=== PATIENT | female | born 1950 | race African-American/Black ===

== ENCOUNTER 2016-08-26 23:57 | Emergency (ER) | payer MEDICARE, MEDICAID ==
[2016-08-27] MEDS ORDERED: cefTRIAXone\\ROCEPHIN 1 GM VIAL ONE (00:32)
[2016-08-27] MEDS ORDERED: Lidocaine 1% (PF) 30 ML VIAL ONE (00:34)
[2016-08-27] MEDS ORDERED: Lidocaine 1% 20 ML MDV ONE (00:36)
--- NOTE | 2016-08-27 00:49 | ERRECORD ---
[facility] EMERGENCY RECORD HPI COUGH (00:26 ) CHIEF COMPLAINT: Patient presents for evaluation of cough, non-productive, Patient presents for evaluation of c/o pain in face, congestion. HISTORIAN: History provided by patient. ASSOCIATED WITH: Associated symptoms reviewed. EXACERBATED BY: Patient's condition exacerbated by nothing. RELIEVED BY: Patient's condition relieved by nothing. ROS (00:26 SHAN) CONSTITUTIONAL: Historian reports malaise, reports weakness. EYES: Negative eye review of systems. ENT: Historian reports rhinorrhea, pain over face. CARDIOVASCULAR: Negative cardiovascular review of systems. RESPIRATORY: Historian reports cough. MUSCULOSKELETAL: Negative musculoskeletal review of systems. SKIN: Negative skin review of systems. NEUROLOGIC: Negative neurologic review of systems. PAST MEDICAL HISTORY (00:20 EROG) MEDICAL HISTORY: Past medical history includes history of hypertension, which has been treated, Past medical history includes history of hypertension, which has been treated,. VERIFIED 08/27/16. FEMALE SURGICAL HISTORY: VERIFIED 12-21-14, Surgical history of colostomy IN 1984,. VERIFIED 08/27/16. SOCIAL HISTORY: Patient denies alcohol use, Patient denies drug use, Patient has no smoking history, Lives at home, with family, Social History includes VERIFIED 12-21-14, Patient has no smoking history, Patient denies alcohol use, Patient denies drug use. 05/23/14 Verified - quit smoking 15 years ago. VERIFIED 08/27/16. FAMILY HISTORY: Family history is non-contributory to this case. KNOWN ALLERGIES No Known Drug Allergies CURRENT MEDICATIONS (00:16 EROG) lisinopril-hydrochlorothiazide: TABLET : Strength - 20 mg-12.5 mg : ORAL Patient Dose: 1 tab(s) Oral once a day. VITAL SIGNS (00:12 EROG) VITAL SIGNS: BP: 167/97, Pulse: 95, Resp: 20, Temp: 98.2 (Tympanic), Pain: 10 (Constant), O2 sat: 97 on Room Air, Time: 08/27/2016 00:12. &a-1R&a+25V*p+0X*i1492X*c202B*c15G*c2P*p-0X&a-25V&a+1R Name: Talia Ghotra : 1950 F65 MedRec: [id number] AcctNum: [id number] Prepared: TueAug 27, 2016 01:14 by Interface Page 1 of 3 pMD [facility] EMERGENCY RECORD PHYSICAL EXAM (00:26 SHAN) CONSTITUTIONAL: Vital Signs Reviewed, Respiratory rate normal, Normal pulse oximetry, Patient appears non toxic, Patient alert and oriented to person, place and time, Nursing notes reviewed. HEAD: Head exam normal, Head exam included findings of head atraumatic, normocephalic. EYES: Eye exam included findings of eyelids normal to inspection, Pupils equally round and reactive to light, Extraocular muscles intact, Conjunctiva normal, Sclera normal. ENT: Uvula exam normal, Tonsil exam normal, mild pharyngeal edema. both maxillary sinuses tender. NECK: Neck exam normal. RESPIRATORY CHEST: Rhonchi present, diffusely, mild ronchi. CARDIOVASCULAR: Cardiovascular assessment normal, Cardiovascular exam included findings of heart rate regular rate and rhythm, Heart sounds normal. ABDOMEN FEMALE: Abdominal exam normal, Abdominal exam included findings of abdomen nontender, Bowel sounds normal. BACK: Back exam normal, Back exam included findings of normal inspection, range of motion normal. UPPER EXTREMITY: Upper extremity exam included findings of inspection normal, Range of motion normal. NEURO: Neuro exam normal, Neuro exam findings include patient oriented to person, place and time, Speech normal, Gait normal, Memory normal, Cranial nerves intact. PSYCHIATRIC: Psychiatric exam normal, Psychiatric exam included findings of patient oriented to person place and time, Normal affect, Judgment normal, Insight normal. MEDICATION ADMINISTRATION SUMMARY Drug Name: Rocephin injection, Dose Ordered: 1 g, Route: Intramuscular, Status: Given, Time: 00:40 08/27/2016, Detailed record available in Medication Service section. PROBLEM LIST No recorded problems DIAGNOSIS (00:29 SHAN) FINAL: PRIMARY: maxillary sinusitis, ADDITIONAL: upper respiratory infection. PRESCRIPTION (00:28 SHAN) Bactrim DS: TABLET : 800 mg-160 mg : ORAL : Quantity: 1 Unit: tab(s) Route: ORAL Schedule: 2 times a day (before meals) Dispense: 14 Unit: tab(s) May substitute. Refills: No Refills POTENTIAL SEVERE INTERACTION: lisinopril-hydrochlorothiazide. NOTES: No Refills. &a-1R&a+25V*p+0X*[id number]*c202B*c15G*c2P*p-0X&a-25V&a+1R Name: Talia Ghotra : 1950 F65 MedRec: [id number] AcctNum: [id number] Prepared: TueAug 27, 2016 01:14 by Interface Page 2 of 3 pMD [facility] EMERGENCY RECORD DISPOSITION PATIENT: Disposition Type: Discharge, Disposition: *Discharge Home. (00:29 ROBERTO CARLOS) Patient left the department. (01:10 NUNU) Monsalve: NUNU=RANDY Islas, Festus DEL VALLE=RANDY Urias, Ankit AZEVEDO=MD Ana, Arsen &a-1R&a+25V*p+0X*t3572C*c202B*c15G*c2P*p-0X&a-25V&a+1R Name: Talia Ghotra : 1950 F65 MedRec: [id number] AcctNum: [id number] Prepared: TueAug 27, 2016 01:14 by Interface Page 3 of 3 pMD MTDD
--- NOTE | 2016-08-27 01:02 | PICIS ---
[facility] EMERGENCY RECORD TRIAGE (00:14 EROG) TRIAGE NOTES: COUGH, CONGESTION, SORE THROAT. (00:14 EROG) PATIENT: NAME: Talia Ghotra, AGE: 65, GENDER: female, : Tue1950, TIME OF GREET: TueAug 26, 2016 23:58, PREFERRED LANGUAGE: Turkmen, ETHNICITY: Not or , FALL RISK: NO, ECODE BILLING MAP: [facility], SSN: [id number], Zip Code: [address], KG WEIGHT: 103.42, HEIGHT/LENGTH: 162.56cm, BMI: 39.13, PHONE: , , , PERSON ID: [id number], PCP: DR. VALERA. (00:14 EROG) COMPLAINT: CONGESTION. (00:14 EROG) ADMISSION: URGENCY: 4 Non Urgent, ADMISSION SOURCE: Home, TRANSPORT: CAR, BED: ED -04. (00:14 EROG) ASSESSMENT: Assessment: NASAL AND FRONTAL SINUS CONGESTION WITH COUGH. STATES DRAINAGE IS CAUSING SORE THROAT, Symptoms began yesterday. (00:20 EROG) PAIN: Patient complains of pain described as, aching, burning, on a scale 0-10 patient rates pain as 10, Location THROAT AND SINUSES, Pain is constant, Aggravating factors:, Aggravating factors include COUGHING, No relieving factors. (00:20 EROG) IMMUNIZATIONS: Flu vaccine up to date, Date of immunization: 06/2016, Tetanus not up to date, Pneumococcal vaccine up to date, Date of immunization: 06/2016. (00:20 EROG) SIRS SCORING: Heart Rate 55-109 (0), Temp range 96.8-101.1 (0), respiratory rate 12-24 (0), Mental Status altered: no (0), Infection or Suspected Infection: No. (00:20 EROG) PROVIDERS: TRIAGE NURSE: Ankit Urias RN. (00:14 EROG) VITAL SIGNS: BP 167/97, Pulse 95, Resp 20, Temp 98.2, (Tympanic), Pain 10, (Constant), O2 Sat 97, on Room Air, Time 08/27/2016 00:12. (00:12 EROG) PREVIOUS VISIT ALLERGIES: No Known Drug Allergies. (00:14 EROG) No Known Drug Allergies. (00:20 EROG) KNOWN ALLERGIES No Known Drug Allergies CURRENT MEDICATIONS (00:16 EROG) lisinopril-hydrochlorothiazide: TABLET : Strength - 20 mg-12.5 mg : ORAL Patient Dose: 1 tab(s) Oral once a day. VITAL SIGNS VITAL SIGNS: BP: 167/97, Pulse: 95, Resp: 20, Temp: 98.2 (Tympanic), Pain: 10 (Constant), O2 sat: 97 on Room Air, Time: 08/27/2016 00:12. (00:12 EROG) Temp: 97.8, O2 sat: 98% on RA, Time: 08/27/2016 01:05. (01:05 AGAN) NURSING ASSESSMENT: ENT (00:22 EROG) CONSTITUTIONAL: Patient arrives ambulatory, Gait steady, History &a-1R&a+25V*p+0X*a2501G*c202B*c15G*c2P*p-0X&a-25V&a+1R Name: Talia Ghotra : 1950 F65 MedRec: [id number] AcctNum: [id number] Prepared: TueAug 27, 2016 01:20 by Interface Page 1 of 5 pMD [facility] EMERGENCY RECORD obtained from patient, Patient appears, uncomfortable, Patient cooperative, Patient alert, Oriented to person, place and time, Skin warm, Skin dry, Skin normal in color, Mucous membranes pink, Mucous membranes moist, Patient is well-groomed, Patient complains of COUGH, CONGESTION, SORE THROAT, SINUS PAIN. PAIN: aching pain, burning pain, to the throat, MAXILLARY SINUS AREA, constant, on a scale 0-10 patient rates pain as 10, ONSET YESTERDAY, Pain exacerbated by, cough, SWALLOWING, Pain relieved by, NOT COUGHING, Pain relieved by. ENT: Ear assessment findings include ear normal to inspection, Nasal assessment findings include nose normal to inspection, Sinuses normal, Nasal mucosa normal, Congestion, bilaterally, Mouth and throat assessment findings include mouth inspection normal, Uvula normal, Tonsils, BOTH ARE REDDENED, Mucous membranes pink, and moist, Able to swallow, Speech normal, Associated with headache, MAXILLARY SINUSES. RESPIRATORY/CHEST: Breath sounds clear, Respiratory assessment findings include respiratory effort easy, Respirations regular, Conversing normally, Neck and chest exam findings include trachea midline, Chest expansion equal, Chest movement symmetrical, Associated with cough, non-productive. SAFETY: Cart/Stretcher in lowest position, Family at bedside, Call light within reach, Hospital ID band on. NURSING PROCEDURE: DISCHARGE NOTE (01:05 AGAN) DISCHARGE: Patient discharged to home, ambulating without assistance, driving self, unaccompanied, Summary of Care printed/ provided, Patient requested and was provided an electronic copy of Discharge Instructions, Transition record given to patient, Discharge instructions given to patient, Prescriptions given and instructions on side effects given, Name of prescription(s) given: Bactrim DS, Above person(s) verbalized understanding of discharge instructions and follow-up care, Patient discharged by, Dr. Perez, Patient treated and evaluated by physician. BELONGINGS: Belongings remain with patient, Valuables remain with patient. VITAL SIGNS: Temp: 97.8, O2 sat: 98%, on: RA. NURSING PROCEDURE: NURSE NOTES NURSES NOTES: Shift change report given, to Orlando CANCINO RN. (00:30 EROG) Patient in no apparent distress, Warm blanket given to patient, Patient is awaiting disposition, Patient examined by physician. (00:30 AGAN) MEDICATION ADMINISTRATION SUMMARY Drug Name: Rocephin injection, Dose Ordered: 1 g, Route: Intramuscular, Status: Given, Time: 00:40 08/27/2016, Detailed record &a-1R&a+25V*p+0X*u3411O*c202B*c15G*c2P*p-0X&a-25V&a+1R Name: Talia Ghotra : 1950 F65 MedRec: [id number] AcctNum: [id number] Prepared: TueAug 27, 2016 01:20 by Interface Page 2 of 5 pMD [facility] EMERGENCY RECORD available in Medication Service section. MEDICATION SERVICE Rocephin injection: Order: Rocephin injection (ceftriaxone sodium) - Dose: 1 g : Intramuscular Schedule: Now Ordered by: Arsen Perez MD Entered by: Arsen Perez MD TueAug 27, 2016 00:26 , Acknowledged by: Festus Islas RN TueAug 27, 2016 00:30 Documented as given by: Festus Islas RN TueAug 27, 2016 00:40 Patient, Medication, Dose, Route and Time verified prior to administration. IM antibiotic, Amount given: 1 gm, Medication administered to left buttock, Correct patient, time, route, dose and medication confirmed prior to administration, Patient advised of actions and side-effects prior to administration, Allergies confirmed and medications reviewed prior to administration, Patient tolerated procedure well, Patient in position of comfort, Side rails up, Cart in lowest position, Family at bedside. : Follow Up : Response assessment performed, No signs or symptoms of allergic reaction noted, Advised not to ambulate without assistance, Patient in position of comfort, Side rails up, Cart in lowest position, Family at bedside, Denies any problem, no voiced complaints, respirations normal, in no acute distress. (01:05 AGAN) HPI COUGH (00:26 SHAN) CHIEF COMPLAINT: Patient presents for evaluation of cough, non-productive, Patient presents for evaluation of c/o pain in face, congestion. HISTORIAN: History provided by patient. ASSOCIATED WITH: Associated symptoms reviewed. EXACERBATED BY: Patient's condition exacerbated by nothing. RELIEVED BY: Patient's condition relieved by nothing. ROS (00:26 SHAN) CONSTITUTIONAL: Historian reports malaise, reports weakness. EYES: Negative eye review of systems. ENT: Historian reports rhinorrhea, pain over face. CARDIOVASCULAR: Negative cardiovascular review of systems. RESPIRATORY: Historian reports cough. MUSCULOSKELETAL: Negative musculoskeletal review of systems. SKIN: Negative skin review of systems. NEUROLOGIC: Negative neurologic review of systems. PAST MEDICAL HISTORY (00:20 EROG) MEDICAL HISTORY: Past medical history includes history of hypertension, which has been treated, Past medical history includes history of hypertension, which has been treated,. VERIFIED &a-1R&a+25V*p+0X*j4933O*c202B*c15G*c2P*p-0X&a-25V&a+1R Name: Talia Ghotra : 1950 F65 MedRec: [id number] AcctNum: [id number] Prepared: TueAug 27, 2016 01:20 by Interface Page 3 of 5 pMD [facility] EMERGENCY RECORD 08/27/16. FEMALE SURGICAL HISTORY: VERIFIED 5-30-15, Surgical history of colostomy IN 1984,. VERIFIED 08/27/16. SOCIAL HISTORY: Patient denies alcohol use, Patient denies drug use, Patient has no smoking history, Lives at home, with family, Social History includes VERIFIED 12-21-14, Patient has no smoking history, Patient denies alcohol use, Patient denies drug use. 05/23/14 Verified - quit smoking 15 years ago. VERIFIED 08/27/16. FAMILY HISTORY: Family history is non-contributory to this case. PHYSICAL EXAM (00:26 SHAN) CONSTITUTIONAL: Vital Signs Reviewed, Respiratory rate normal, Normal pulse oximetry, Patient appears non toxic, Patient alert and oriented to person, place and time, Nursing notes reviewed. HEAD: Head exam normal, Head exam included findings of head atraumatic, normocephalic. EYES: Eye exam included findings of eyelids normal to inspection, Pupils equally round and reactive to light, Extraocular muscles intact, Conjunctiva normal, Sclera normal. ENT: Uvula exam normal, Tonsil exam normal, mild pharyngeal edema. both maxillary sinuses tender. NECK: Neck exam normal. RESPIRATORY CHEST: Rhonchi present, diffusely, mild ronchi. CARDIOVASCULAR: Cardiovascular assessment normal, Cardiovascular exam included findings of heart rate regular rate and rhythm, Heart sounds normal. ABDOMEN FEMALE: Abdominal exam normal, Abdominal exam included findings of abdomen nontender, Bowel sounds normal. BACK: Back exam normal, Back exam included findings of normal inspection, range of motion normal. UPPER EXTREMITY: Upper extremity exam included findings of inspection normal, Range of motion normal. NEURO: Neuro exam normal, Neuro exam findings include patient oriented to person, place and time, Speech normal, Gait normal, Memory normal, Cranial nerves intact. PSYCHIATRIC: Psychiatric exam normal, Psychiatric exam included findings of patient oriented to person place and time, Normal affect, Judgment normal, Insight normal. EVENTS TRANSFER: Triage to Emergency Main ED -04. (TueAug 27, 2016 00:14 EROG) Removed from Emergency Main ED -04. (01:10 AGAN) PROBLEM LIST No recorded problems &a-1R&a+25V*p+0X*m4016C*c202B*c15G*c2P*p-0X&a-25V&a+1R Name: Talia Ghotra : 1950 F65 MedRec: [id number] AcctNum: [id number] Prepared: TueAug 27, 2016 01:20 by Interface Page 4 of 5 pMD [facility] EMERGENCY RECORD DIAGNOSIS (00:) FINAL: PRIMARY: maxillary sinusitis, ADDITIONAL: upper respiratory infection. DISPOSITION PATIENT: Disposition Type: Discharge, Disposition: *Discharge Home. (00:29 SHAN) Patient left the department. (01:10 AGAN) INSTRUCTION (00:30 ) DISCHARGE: SINUSITIS, ABX TX. SPECIAL: 1. antibiotics as directed 2. rest, take extra fluids 3. return if condition worsens 4. followup with regular provider in a few days. PRESCRIPTION (00:28 ) Bactrim DS: TABLET : 800 mg-160 mg : ORAL : Quantity: 1 Unit: tab(s) Route: ORAL Schedule: 2 times a day (before meals) Dispense: 14 Unit: tab(s) May substitute. Refills: No Refills POTENTIAL SEVERE INTERACTION: lisinopril-hydrochlorothiazide. NOTES: No Refills. IMAGING *DISCHARGE INSTRUCTIONS RECEIPT: Image captured from scanner. (01:19 AGAN) *SUPPLY CHARGE SHEET: Image captured from scanner. (01:20 AGAN) ADMIN DIGITAL SIGNATURE: RANDY Urias Eugene. (00:26 EROG) MD Perez Stanley. (00:30 ) RANDY Urias Eugene. (00:30 EROG) Monsalve: AGALars=RANDY Islas Arlie EROG=RANDY Urias Eugene SHAN=MD Perez Stanley &a-1R&a+25V*p+0X*g9334K*c202B*c15G*c2P*p-0X&a-25V&a+1R Name: Talia Ghotra : 1950 F65 MedRec: [id number] AcctNum: [id number] Prepared: TueAug 27, 2016 01:20 by Interface Page 5 of 5 pMD MTDD
== END 2016-08-27 01:05 | disposition home or self-care (01) ==
LOC: MADERS 23:57
DX: J01.00 Acute maxillary sinusitis, unspecified (principal); J06.9 Acute upper respiratory infection, unspecified; I10 Essential (primary) hypertension
CPT/HCPCS: 96372; J0696; J2001

== ENCOUNTER 2017-01-24 22:19 | Emergency (ER) | payer MEDICAID, MEDICARE, OTHER ==
[2017-01-24] MEDS ORDERED: Cyclobenzaprine 10 MG TAB ONE (22:36)
[2017-01-24] MEDS ORDERED: Dexamethasone 4 MG TAB ONE (22:36)
[2017-01-24] MEDS ORDERED: Ibuprofen 800 MG TAB ONE (22:36)
== END 2017-01-24 22:40 | disposition home or self-care (01) ==
LOC: MADERS 22:19
DX: M25.511 Pain in right shoulder (principal); I10 Essential (primary) hypertension; Z79.899 Other long term (current) drug therapy
CPT/HCPCS: 99283; J8540

== ENCOUNTER 2017-01-28 10:35 | Emergency (ER) | payer MEDICARE, MEDICAID ==
[2017-01-28] MEDS ORDERED: Naproxen 500 MG TAB ONE (10:58)
[2017-01-28] MEDS ORDERED: diphenhydrAMINE HCl 25 MG CAP ONE (10:58)
== END 2017-01-28 11:18 | disposition home or self-care (01) ==
LOC: MADERS 10:35
DX: B02.9 Zoster without complications (principal); I10 Essential (primary) hypertension; E78.00 Pure hypercholesterolemia, unspecified; M19.90 Unspecified osteoarthritis, unspecified site
CPT/HCPCS: 96372; J2270